=== PATIENT | female | born 1935 | race Caucasian/White ===

== ENCOUNTER 2022-02-05 14:02 | Inpatient (IN) | payer MEDICARE, MEDICAID ==
[~2022-02-05] VITALS: Ht 152.4 cm; Wt 49.0 kg
[2022-02-05] MEDS ORDERED: ACETAMINOPHEN 325MG TABLET PO STA (14:32)
[2022-02-05] MEDS ORDERED: SODIUM CHLORIDE 0.9% 1,000 ML IV ONE (14:45)
[2022-02-05] MEDS ORDERED: VANCOMYCIN 1G PREMIX 200 ML IV ONE (14:45)
[2022-02-05] MEDS ORDERED: METRONIDAZOLE 500 MG PREMIX 100 ML IV ONE (14:45)
[2022-02-05] MEDS ORDERED: CEFTRIAXONE 1 G PREMIX 50 ML IV ONE (14:45)
[2022-02-05] MEDS ORDERED: CEFTRIAXONE 1 G PREMIX 50 ML IV NR (14:45)
[2022-02-05] MEDS ORDERED: VANCOMYCIN 1G PREMIX 200 ML IV NR (14:45)
[2022-02-05 17:41] LABS: BASOPHILS % 0.3 % (0.0-2.0); EOSINOPHILS % 0.6 % (0.0-5.0); HEMATOCRIT. 37.4 % (36.0-48.0); HEMOGLOBIN. 12.4 g/dL (12.0-16.0); LYMPHOCYTES % 12.7 % (20.0-50.0); MEAN CORPUSCULAR HEMOGLOBIN 31.9 pg (28.0-32.0); MEAN CORPUSCULAR VOLUME 95.9 fL (81.0-99.0); MEAN PLATELET VOLUME 7.2 fl (7.4-10.4); MONOCYTES % 6.2 % (2.0-8.0); NEUTROPHILS % 80.2 % (40.0-76.0); PLATELET 271 x1000/uL (130-400); RED CELL DISTRIBUTION WIDTH 13.6 % (11.6-14.6)
[2022-02-05 17:48] LABS: INR 1.1; PROTHROMBIN TIME 11.7 sec (9.6-11.0)
[2022-02-05 17:53] LABS: CHLORIDE 98 mEq/L (98-107)
[2022-02-05] MEDS ORDERED: DOCUSATE SODIUM 100MG CAPSULE PO PRN (21:00)
[2022-02-05] MEDS ORDERED: DIPHENHYDRAMINE 50MG/ML VIAL IV PRN (21:00)
[2022-02-05] MEDS ORDERED: CLONIDINE 0.1MG TABLET PO PRN (21:00)
[2022-02-05] MEDS ORDERED: ONDANSETRON HCL 4MG/2ML INJ IV PRN (21:00)
[2022-02-05] MEDS ORDERED: ACETAMINOPHEN 325MG TABLET PO PRN (21:00)
[2022-02-05] MEDS ORDERED: ZOLPIDEM TARTRATE 5MG TABLET PO PRN (21:00)
[2022-02-05] MEDS ORDERED: PIPERACILLIN/TAZ 3.375G PREMIX 50 ML IV NR (21:47)
[2022-02-05 22:00] VITALS: BP 145/80
[2022-02-05] MEDS ORDERED: ENOXAPARIN 30MG/0.3ML SYR SUBCUT NR (22:08)
[2022-02-06] VITALS: BP 126/76
[2022-02-06] MEDS ORDERED: DEXTROSE 50% WATER 50ML SYRINGE IV PRN (01:30)
[2022-02-06 04:00] VITALS: BP 129/77
[2022-02-06] MEDS: BLOOD SUGAR DIAGNOSTIC STRIP TEST SCH ×4 (05:21→21:09)
[2022-02-06] MEDS: INSULIN LISPRO 100 UNITS/ML SUBCUT SCH ×4 (05:39→21:51)
[2022-02-06] MEDS ORDERED: PIPERACILLIN/TAZOBACTAM 3.375 G in DEXTROSE 5% WATER 50 ML IV SCH (06:00)
[2022-02-06 06:56] LABS: BASOPHILS % 0.2 % (0.0-2.0); EOSINOPHILS % 0.6 % (0.0-5.0); HEMATOCRIT. 37.8 % (36.0-48.0); HEMOGLOBIN. 12.7 g/dL (12.0-16.0); LYMPHOCYTES % 11.1 % (20.0-50.0); MEAN CORPUSCULAR HEMOGLOBIN 32.3 pg (28.0-32.0); MEAN PLATELET VOLUME 7.5 fl (7.4-10.4); MONOCYTES % 8.7 % (2.0-8.0); NEUTROPHILS % 79.4 % (40.0-76.0); PLATELET 227 x1000/uL (130-400); RED BLOOD CELL COUNT 3.94 mill/uL (4.2-5.4); RED CELL DISTRIBUTION WIDTH 13.8 % (11.6-14.6)
[2022-02-06 07:10] LABS: CHLORIDE 101 mEq/L (98-107)
[2022-02-06 08:00] VITALS: BP 143/71
[2022-02-06] MEDS ORDERED: VANCOMYCIN 500 MG in DEXT 5% WATER 100 ML IV SCH (10:00)
[2022-02-06] MEDS ORDERED: IOHEXOL-350 100 ML BOTTLE ONE (10:13)
[2022-02-06 12:00] VITALS: BP 145/80
[2022-02-06] MEDS: VANCOMYCIN 500MG PREMIX 100 ML IV SCH (12:12)
[2022-02-06] MEDS ORDERED: LIDOCAINE HCL/PF 1% 10 MG/ML 5ML VIAL ONE (12:45)
[2022-02-06] MEDS: PIPERACILLIN/TAZOBACTAM 3.375 G in DEXTROSE 5% WATER 50 ML IV SCH ×2 (13:54→21:48)
[2022-02-06 16:00] VITALS: BP 129/64
[2022-02-06 20:00] VITALS: BP 128/74
[2022-02-06] MEDS ORDERED: NALOXONE HCL 0.4MG/ML VIAL IV PRN (20:30)
[2022-02-06] MEDS ORDERED: MORPHINE SULFATE 2 MG/ML CPJ (NOT FOR IM USE) IV PRN (20:30)
[2022-02-06] MEDS: ENOXAPARIN 30MG/0.3ML SYR SUBCUT SCH (21:49)
[2022-02-07] VITALS: BP 104/66
[2022-02-07 04:00] VITALS: BP 142/77
[2022-02-07] MEDS: PIPERACILLIN/TAZOBACTAM 3.375 G in DEXTROSE 5% WATER 50 ML IV SCH ×3 (05:05→21:47)
[2022-02-07] MEDS: VANCOMYCIN 500MG PREMIX 100 ML IV SCH (05:06)
[2022-02-07] MEDS: BLOOD SUGAR DIAGNOSTIC STRIP TEST SCH ×4 (05:10→21:41)
[2022-02-07] MEDS: INSULIN LISPRO 100 UNITS/ML SUBCUT SCH ×4 (05:10→21:47)
[2022-02-07 08:00] VITALS: BP 138/65
[2022-02-07] MEDS ORDERED: DEXT 5%/0.45% NACL 1000ML 1,000 ML IV SCH (08:00)
[2022-02-07] MEDS ORDERED: REGADENOSON 0.4 MG/5 ML IV NR (09:02)
[2022-02-07 12:00] VITALS: BP 119/65
[2022-02-07] MEDS ORDERED: MIDAZOLAM HCL 2 MG/2 ML VIAL ONE (12:46)
[2022-02-07] MEDS ORDERED: LIDOCAINE HCL/PF 2% 20MG/ML 5 ML/VIAL ONE (12:46)
[2022-02-07] MEDS ORDERED: IODIXANOL 320MG/ML 100 ML BOTTLE IV ONE (12:46)
[2022-02-07] MEDS ORDERED: FENTANYL CITRATE/PF 50MCG/ML 2ML VIAL ONE (12:46)
[2022-02-07] MEDS ORDERED: HEPARIN 1000 UNITS/ML 10ML ONE (12:46)
[2022-02-07] MEDS: CLOPIDOGREL 75MG TABLET PO SCH (14:45)
[2022-02-07 16:00] VITALS: BP 137/71
[2022-02-07 20:00] VITALS: BP 127/69
[2022-02-07] MEDS: ENOXAPARIN 30MG/0.3ML SYR SUBCUT SCH (21:47)
[2022-02-07] MEDS: INSULIN GLARGINE 100 UNITS/ML SUBCUT SCH (21:48)
[2022-02-08] VITALS: BP 135/66
[2022-02-08] MEDS: VANCOMYCIN 500MG PREMIX 100 ML IV SCH ×2 (01:54→22:37)
[2022-02-08 04:00] VITALS: BP 128/66
[2022-02-08] MEDS: BLOOD SUGAR DIAGNOSTIC STRIP TEST SCH ×4 (05:42→21:15)
[2022-02-08] MEDS: PIPERACILLIN/TAZOBACTAM 3.375 G in DEXTROSE 5% WATER 50 ML IV SCH ×3 (05:49→21:27)
[2022-02-08] MEDS: INSULIN LISPRO 100 UNITS/ML SUBCUT SCH ×4 (05:50→21:31)
[2022-02-08 08:00] VITALS: BP 102/66
[2022-02-08 08:21] LABS: BASOPHILS % 0.3 % (0.0-2.0); EOSINOPHILS % 0.3 % (0.0-5.0); HEMOGLOBIN. 11.3 g/dL (12.0-16.0); LYMPHOCYTES % 10.2 % (20.0-50.0); MEAN CORPUSCULAR HEMOGLOBIN 32.6 pg (28.0-32.0); MEAN CORPUSCULAR VOLUME 95.4 fL (81.0-99.0); MEAN PLATELET VOLUME 7.7 fl (7.4-10.4); MONOCYTES % 7.9 % (2.0-8.0); NEUTROPHILS % 81.3 % (40.0-76.0); PLATELET 232 x1000/uL (130-400); RED BLOOD CELL COUNT 3.47 mill/uL (4.2-5.4); RED CELL DISTRIBUTION WIDTH 14.1 % (11.6-14.6)
[2022-02-08] MEDS: CLOPIDOGREL 75MG TABLET PO SCH (09:51)
[2022-02-08] MEDS: SODIUM CHLORIDE 0.45% 1,000 ML IV SCH (10:00)
[2022-02-08 12:00] VITALS: BP 112/68
[2022-02-08 16:00] VITALS: BP 131/75
[2022-02-08 20:00] VITALS: BP 117/60
[2022-02-08] MEDS ORDERED: DIGOXIN 500MCG/2ML AMP IV NR (20:45)
[2022-02-08] MEDS: ENOXAPARIN 30MG/0.3ML SYR SUBCUT SCH (21:15)
[2022-02-08] MEDS: INSULIN GLARGINE 100 UNITS/ML SUBCUT SCH (21:32)
[2022-02-08] MEDS: ATENOLOL 50 MG TABLET PO SCH (21:47)
[2022-02-09] VITALS: BP 138/71
[2022-02-09] MEDS: SODIUM CHLORIDE 0.45% 1,000 ML IV SCH (00:05)
[2022-02-09 04:00] VITALS: BP 134/67
[2022-02-09] MEDS: PIPERACILLIN/TAZOBACTAM 3.375 G in DEXTROSE 5% WATER 50 ML IV SCH ×3 (05:26→21:03)
[2022-02-09] MEDS: BLOOD SUGAR DIAGNOSTIC STRIP TEST SCH ×4 (05:52→21:03)
[2022-02-09] MEDS: INSULIN LISPRO 100 UNITS/ML SUBCUT SCH ×4 (06:42→21:19)
[2022-02-09 07:57] LABS: BASOPHILS % 0.6 % (0.0-2.0); EOSINOPHILS % 0.9 % (0.0-5.0); HEMATOCRIT. 32.4 % (36.0-48.0); HEMOGLOBIN. 10.9 g/dL (12.0-16.0); LYMPHOCYTES % 12.1 % (20.0-50.0); MEAN CORPUSCULAR HEMOGLOBIN 32.2 pg (28.0-32.0); MEAN CORPUSCULAR VOLUME 95.7 fL (81.0-99.0); MONOCYTES % 8.1 % (2.0-8.0); NEUTROPHILS % 78.3 % (40.0-76.0); RED BLOOD CELL COUNT 3.39 mill/uL (4.2-5.4); RED CELL DISTRIBUTION WIDTH 13.8 % (11.6-14.6)
[2022-02-09 08:00] VITALS: BP 131/67
[2022-02-09 08:19] LABS: PHOSPHORUS 2.7 mg/dL (2.5-4.9)
[2022-02-09] MEDS: CLOPIDOGREL 75MG TABLET PO SCH (09:23)
[2022-02-09] MEDS: ATENOLOL 50 MG TABLET PO SCH (09:23)
[2022-02-09] MEDS ORDERED: SODIUM CHLORIDE 0.9% 1,000 ML IV SCH (10:30)
[2022-02-09 12:00] VITALS: BP 136/74
[2022-02-09] MEDS: VANCOMYCIN 500MG PREMIX 100 ML IV SCH (13:45)
[2022-02-09 16:00] VITALS: BP 130/76
[2022-02-09 20:00] VITALS: BP 121/59
[2022-02-09] MEDS: ENOXAPARIN 30MG/0.3ML SYR SUBCUT SCH (21:03)
[2022-02-09] MEDS: INSULIN GLARGINE 100 UNITS/ML SUBCUT SCH (21:18)
[2022-02-10] VITALS: BP 139/70
[2022-02-10 04:00] VITALS: BP 118/65
[2022-02-10] MEDS: VANCOMYCIN 500MG PREMIX 100 ML IV SCH ×2 (06:07→23:59)
[2022-02-10] MEDS: PIPERACILLIN/TAZOBACTAM 3.375 G in DEXTROSE 5% WATER 50 ML IV SCH ×3 (06:07→21:50)
[2022-02-10] MEDS: BLOOD SUGAR DIAGNOSTIC STRIP TEST SCH ×4 (06:07→20:39)
[2022-02-10] MEDS: INSULIN LISPRO 100 UNITS/ML SUBCUT SCH ×4 (06:32→20:38)
[2022-02-10 07:18] LABS: BASOPHILS % 0.1 % (0.0-2.0); EOSINOPHILS % 0.8 % (0.0-5.0); HEMATOCRIT. 32.5 % (36.0-48.0); LYMPHOCYTES % 10.9 % (20.0-50.0); MEAN CORPUSCULAR HEMOGLOBIN 31.7 pg (28.0-32.0); MEAN CORPUSCULAR VOLUME 93.5 fL (81.0-99.0); MEAN PLATELET VOLUME 7.4 fl (7.4-10.4); MONOCYTES % 5.9 % (2.0-8.0); NEUTROPHILS % 82.3 % (40.0-76.0); PLATELET 242 x1000/uL (130-400); RED BLOOD CELL COUNT 3.47 mill/uL (4.2-5.4); RED CELL DISTRIBUTION WIDTH 13.4 % (11.6-14.6)
[2022-02-10] MEDS ORDERED: DEXT 5%/0.9% NACL 1,000 ML IV SCH (07:45)
[2022-02-10 07:58] LABS: PHOSPHORUS 2.6 mg/dL (2.5-4.9)
[2022-02-10 08:00] VITALS: BP 131/66
[2022-02-10] MEDS: CLOPIDOGREL 75MG TABLET PO SCH ×2 (09:00→13:49)
[2022-02-10] MEDS: ATENOLOL 50 MG TABLET PO SCH (09:52)
[2022-02-10] MEDS ORDERED: LIDOCAINE HCL/PF 2% 20MG/ML 5 ML/VIAL INJ NR (11:00)
[2022-02-10 12:00] VITALS: BP 131/87
[2022-02-10 13:52] LABS: BG BASE EXCESS -3.7 mmol/L (-2.0-2.0); BG CARBOXYHEMOGLOBIN 0.1 % (0.5-1.5); BG DEOXYHEMOGLOBIN 4.6 % (0.0-5.0); BG FRACTION INSPIRED OXYGEN 21; BG HCO3 ACT 17.9 mmol/L (22.0-26.0); BG METHEMOGLOBIN 0.4 % (0.0-1.5); BG OXYGEN SATURATION 95.4 % (92.0-98.5); BG OXYHEMOGLOBIN 94.9 % (94.0-97.0); BG PCO2 23.8 mmHg (35.0-45.0); BG PH 7.494 (7.350-7.450); BG PO2 74.9 mmHg (75.0-100.0); BG SAMPLE SITE RIGHT RADIAL; BG TOTAL HEMOGLOBIN 12.4 g/dL (12.0-18.0); BG VENT MODE ROOM AIR
[2022-02-10 16:00] VITALS: BP 133/70
[2022-02-10 20:00] VITALS: BP 134/76
[2022-02-10] MEDS: ENOXAPARIN 30MG/0.3ML SYR SUBCUT SCH (20:24)
[2022-02-10] MEDS: INSULIN GLARGINE 100 UNITS/ML SUBCUT SCH (21:51)
[2022-02-11] VITALS: BP 132/72
[2022-02-11 04:00] VITALS: BP 133/71
[2022-02-11] MEDS: PIPERACILLIN/TAZOBACTAM 3.375 G in DEXTROSE 5% WATER 50 ML IV SCH ×2 (05:08→13:15)
[2022-02-11] MEDS: BLOOD SUGAR DIAGNOSTIC STRIP TEST SCH ×4 (05:56→20:30)
[2022-02-11] MEDS: INSULIN LISPRO 100 UNITS/ML SUBCUT SCH ×4 (05:56→20:30)
[2022-02-11 08:00] VITALS: BP 134/63
[2022-02-11] MEDS: CLOPIDOGREL 75MG TABLET PO SCH (08:56)
[2022-02-11] MEDS: ATENOLOL 50 MG TABLET PO SCH (08:56)
[2022-02-11 10:12] LABS: BASOPHILS % 0.2 % (0.0-2.0); EOSINOPHILS % 0.6 % (0.0-5.0); HEMATOCRIT. 34.6 % (36.0-48.0); HEMOGLOBIN. 11.6 g/dL (12.0-16.0); LYMPHOCYTES % 8.1 % (20.0-50.0); MEAN CORPUSCULAR HEMOGLOBIN 31.8 pg (28.0-32.0); MEAN CORPUSCULAR VOLUME 94.4 fL (81.0-99.0); MEAN PLATELET VOLUME 7.2 fl (7.4-10.4); MONOCYTES % 5.2 % (2.0-8.0); NEUTROPHILS % 85.9 % (40.0-76.0); PLATELET 270 x1000/uL (130-400); RED BLOOD CELL COUNT 3.66 mill/uL (4.2-5.4); RED CELL DISTRIBUTION WIDTH 13.6 % (11.6-14.6)
[2022-02-11 12:00] VITALS: BP 123/61
[2022-02-11 16:00] VITALS: BP 119/81
[2022-02-11 20:00] VITALS: BP 113/56
[2022-02-11] MEDS: ENOXAPARIN 30MG/0.3ML SYR SUBCUT SCH (20:31)
[2022-02-11] MEDS: INSULIN GLARGINE 100 UNITS/ML SUBCUT SCH (21:58)
[2022-02-12] VITALS: BP 122/65
[2022-02-12 05:00] VITALS: BP 93/63
[2022-02-12] MEDS: INSULIN LISPRO 100 UNITS/ML SUBCUT SCH ×4 (06:22→21:15)
[2022-02-12] MEDS: BLOOD SUGAR DIAGNOSTIC STRIP TEST SCH ×4 (06:22→21:00)
[2022-02-12 07:41] LABS: BASOPHILS % 0.3 % (0.0-2.0); HEMATOCRIT. 30.6 % (36.0-48.0); HEMOGLOBIN. 10.4 g/dL (12.0-16.0); LYMPHOCYTES % 9.9 % (20.0-50.0); MEAN CORPUSCULAR HEMOGLOBIN 31.9 pg (28.0-32.0); MEAN CORPUSCULAR VOLUME 94.2 fL (81.0-99.0); MEAN PLATELET VOLUME 7.2 fl (7.4-10.4); MONOCYTES % 5.4 % (2.0-8.0); NEUTROPHILS % 83.4 % (40.0-76.0); PLATELET 275 x1000/uL (130-400); RED BLOOD CELL COUNT 3.25 mill/uL (4.2-5.4); RED CELL DISTRIBUTION WIDTH 13.4 % (11.6-14.6)
[2022-02-12 08:00] VITALS: BP 137/71
[2022-02-12] MEDS: ATENOLOL 50 MG TABLET PO SCH (08:23)
[2022-02-12] MEDS: CLOPIDOGREL 75MG TABLET PO SCH (08:23)
[2022-02-12 12:00] VITALS: BP 140/74
[2022-02-12 16:00] VITALS: BP 118/54
[2022-02-12] MEDS: PIPERACILLIN/TAZOBACTAM 3.375 G in DEXTROSE 5% WATER 50 ML IV SCH ×2 (18:24→22:16)
[2022-02-12] MEDS: ENOXAPARIN 30MG/0.3ML SYR SUBCUT SCH (19:52)
[2022-02-12 20:00] VITALS: BP 120/50
[2022-02-12] MEDS: INSULIN GLARGINE 100 UNITS/ML SUBCUT SCH (21:16)
[2022-02-12] MEDS ORDERED: VANCOMYCIN 750MG PREMIX 150 ML IV SCH (23:00)
[2022-02-13] VITALS: BP 101/50
[2022-02-13 04:00] VITALS: BP 105/50
[2022-02-13] MEDS: PIPERACILLIN/TAZOBACTAM 3.375 G in DEXTROSE 5% WATER 50 ML IV SCH ×2 (05:03→13:41)
[2022-02-13] MEDS: BLOOD SUGAR DIAGNOSTIC STRIP TEST SCH ×4 (07:20→21:31)
[2022-02-13] MEDS: INSULIN LISPRO 100 UNITS/ML SUBCUT SCH ×4 (07:50→21:32)
[2022-02-13 08:00] VITALS: BP 111/66
[2022-02-13] MEDS: ATENOLOL 50 MG TABLET PO SCH (09:00)
[2022-02-13] MEDS: CLOPIDOGREL 75MG TABLET PO SCH (09:41)
[2022-02-13 12:00] VITALS: BP 149/77
[2022-02-13] MEDS ORDERED: CEFTRIAXONE 2 G PREMIX 50 ML IV SCH (15:00)
[2022-02-13 16:00] VITALS: BP 126/58
[2022-02-13] MEDS: CEFTRIAXONE 2 G in DEXTROSE 5% WATER 50 ML IV SCH (18:24)
[2022-02-13 20:00] VITALS: BP 102/52
[2022-02-13] MEDS: METRONIDAZOLE 500MG TABLET PO SCH (21:30)
[2022-02-13] MEDS: ENOXAPARIN 30MG/0.3ML SYR SUBCUT SCH (21:30)
[2022-02-13] MEDS: INSULIN GLARGINE 100 UNITS/ML SUBCUT SCH (21:32)
[2022-02-14] VITALS: BP 118/61
[2022-02-14 04:00] VITALS: BP 133/53
[2022-02-14] MEDS: BLOOD SUGAR DIAGNOSTIC STRIP TEST SCH ×4 (06:46→21:00)
[2022-02-14] MEDS: INSULIN LISPRO 100 UNITS/ML SUBCUT SCH ×4 (06:47→21:00)
[2022-02-14 07:05] LABS: BASOPHILS % 0.2 % (0.0-2.0); EOSINOPHILS % 0.3 % (0.0-5.0); HEMATOCRIT. 32.1 % (36.0-48.0); HEMOGLOBIN. 11.1 g/dL (12.0-16.0); LYMPHOCYTES % 7.7 % (20.0-50.0); MEAN CORPUSCULAR HEMOGLOBIN 32.3 pg (28.0-32.0); MEAN CORPUSCULAR VOLUME 93.4 fL (81.0-99.0); MEAN PLATELET VOLUME 6.9 fl (7.4-10.4); MONOCYTES % 4.4 % (2.0-8.0); NEUTROPHILS % 87.4 % (40.0-76.0); PLATELET 348 x1000/uL (130-400); RED BLOOD CELL COUNT 3.44 mill/uL (4.2-5.4); RED CELL DISTRIBUTION WIDTH 13.5 % (11.6-14.6)
[2022-02-14 08:00] VITALS: BP 121/82
[2022-02-14] MEDS: ATENOLOL 50 MG TABLET PO SCH ×2 (08:13→08:54)
[2022-02-14] MEDS: CLOPIDOGREL 75MG TABLET PO SCH ×2 (08:13→08:54)
[2022-02-14] MEDS: METRONIDAZOLE 500MG TABLET PO SCH ×3 (08:13→21:56)
[2022-02-14 12:00] VITALS: BP 118/53
[2022-02-14 16:00] VITALS: BP 121/71
[2022-02-14] MEDS: CEFTRIAXONE 2 G in DEXTROSE 5% WATER 50 ML IV SCH (16:05)
[2022-02-14 20:00] VITALS: BP 129/58
[2022-02-14] MEDS: ENOXAPARIN 30MG/0.3ML SYR SUBCUT SCH (21:56)
[2022-02-14] MEDS: INSULIN GLARGINE 100 UNITS/ML SUBCUT SCH (22:00)
[2022-02-15] VITALS: BP 134/62
[2022-02-15 04:00] VITALS: BP 137/64
[2022-02-15] MEDS: BLOOD SUGAR DIAGNOSTIC STRIP TEST SCH (06:59)
[2022-02-15] MEDS: INSULIN LISPRO 100 UNITS/ML SUBCUT SCH (07:50)
[2022-02-15 08:00] VITALS: BP 124/80
[2022-02-15] MEDS: CLOPIDOGREL 75MG TABLET PO SCH (09:18)
[2022-02-15] MEDS: ATENOLOL 50 MG TABLET PO SCH (09:18)
[2022-02-15] MEDS: METRONIDAZOLE 500MG TABLET PO SCH (09:20)
== END 2022-02-15 11:00 | disposition home health service (06) | DRG 270 ==
LOC: ER 14:02 → 8WST 19:27 → EDBEDREQTM 19:39 → EDBEDREQ 19:39 → EDBEDREQSVC 20:21 → EDBEDREQTM 20:21 → ENRESERV 20:23 → ER 21:13 → 6EST 02-12 11:24
PROVIDERS: ADMIT Internal Medicine Nephrology; ATTEND Internal Medicine Nephrology
PROC: 02HV33Z Insertion of Infusion Device into Superior Vena Cava, Percutaneous Approach (ICD-10-PCS; 2022-02-06)
PROC: B548ZZA Ultrasonography of Superior Vena Cava, Guidance (ICD-10-PCS; 2022-02-06)
PROC: 047M3ZZ Dilation of Right Popliteal Artery, Percutaneous Approach (ICD-10-PCS; principal; 2022-02-07)
PROC: 04CM3ZZ Extirpation of Matter from Right Popliteal Artery, Percutaneous Approach (ICD-10-PCS; 2022-02-07)
PROC: 047K3ZZ Dilation of Right Femoral Artery, Percutaneous Approach (ICD-10-PCS; 2022-02-07)
PROC: 047 Lower Arteries, Dilation (ICD-10-PCS; 2022-02-07)
PROC: 0JBQ0ZZ Excision of Right Foot Subcutaneous Tissue and Fascia, Open Approach (ICD-10-PCS; 2022-02-07)
PROC: B41F1ZZ Fluoroscopy of Right Lower Extremity Arteries using Low Osmolar Contrast (ICD-10-PCS; 2022-02-07)
DX: I70.261 Atherosclerosis of native arteries of extremities with gangrene, right leg (principal); G93.41 Metabolic encephalopathy; L02.611 Cutaneous abscess of right foot; L97.419 Non-pressure chronic ulcer of right heel and midfoot with unspecified severity; L03.115 Cellulitis of right lower limb; M86.8X7 Other osteomyelitis, ankle and foot; I25.10 Atherosclerotic heart disease of native coronary artery without angina pectoris; I11.0 Hypertensive heart disease with heart failure; I70.202 Unspecified atherosclerosis of native arteries of extremities, left leg; B95.61 Methicillin susceptible Staphylococcus aureus infection as the cause of diseases classified elsewhere; B96.4 Proteus (mirabilis) (morganii) as the cause of diseases classified elsewhere; B96.20 Unspecified Escherichia coli [E. coli] as the cause of diseases classified elsewhere; E11.69 Type 2 diabetes mellitus with other specified complication; I50.9 Heart failure, unspecified; E11.649 Type 2 diabetes mellitus with hypoglycemia without coma; E78.5 Hyperlipidemia, unspecified; Z20.822 Contact with and (suspected) exposure to COVID-19; E11.621 Type 2 diabetes mellitus with foot ulcer; F03.90 Unspecified dementia, unspecified severity, without behavioral disturbance, psychotic disturbance, mood disturbance, and anxiety; I48.91 Unspecified atrial fibrillation; S90.31XA Contusion of right foot, initial encounter; X58.XXXA Exposure to other specified factors, initial encounter; Y93.89 Activity, other specified; Y92.89 Other specified places as the place of occurrence of the external cause; Y99.8 Other external cause status; Z74.01 Bed confinement status; Z95.0 Presence of cardiac pacemaker
CPT/HCPCS: 36415; 36573; 36600; 37227; 37228; 71045; 73650; 75635; 75710; 78452; 80048; 80053; 80061; 80202; 82375; 82805; 82962; 83036; 83605; 83735; 84100; 84145; 85025; 85347; 85651; 87070; 87077; 87186; 87426; 93005; 93017; 93306; 93970; 99285; A9500; C1725; C1760; C1769; C1876; C1885; C1887; C1893; C1894; J0696; J1160; J1644; J1650; J1815; J2250; J2543; J2785; J3010; J3370; J3490; J7030; J7042; J7060; L1830; Q9967

== ENCOUNTER 2022-03-01 09:33 | Inpatient (IN) | payer MEDICARE, MEDICAID ==
[~2022-03-01] VITALS: Ht 160 cm; Wt 46.3 kg
[2022-03-01] MEDS ORDERED: ACETAMINOPHEN 650MG SUPP PR STA (09:54)
[2022-03-01] MEDS ORDERED: SODIUM CHLORIDE 0.9% 1000ML BAG (SEPSIS BOLUS) IV ONE (10:00)
[2022-03-01] MEDS ORDERED: PIPERACILLIN/TAZ 3.375G PREMIX 50 ML IV ONE (10:00)
[2022-03-01] MEDS ORDERED: VANCOMYCIN 1G PREMIX 200 ML IV ONE (10:00)
[2022-03-01 10:16] LABS: BG BASE EXCESS 1.8 mmol/L (-2.0-2.0); BG CARBOXYHEMOGLOBIN 0.3 % (0.5-1.5); BG DEOXYHEMOGLOBIN 3.9 % (0.0-5.0); BG HCO3 ACT 25.6 mmol/L (22.0-26.0); BG METHEMOGLOBIN 0.7 % (0.0-1.5); BG OXYGEN SATURATION 96.1 % (92.0-98.5); BG OXYHEMOGLOBIN 95.1 % (94.0-97.0); BG PCO2 37.4 mmHg (35.0-45.0); BG PH 7.454 (7.350-7.450); BG PO2 88.1 mmHg (75.0-100.0); BG SAMPLE SITE RIGHT BRACHIAL; BG TOTAL HEMOGLOBIN 11.7 g/dL (12.0-18.0); BG VENT MODE NASAL CANNULA
[2022-03-01] MEDS ORDERED: VANCOMYCIN 1GM PMX (XELLIA) 200 ML IV NR (10:30)
[2022-03-01 10:31] LABS: BASOPHILS % 0.6 % (0.0-2.0); EOSINOPHILS % 0.1 % (0.0-5.0); HEMATOCRIT. 32.7 % (36.0-48.0); HEMOGLOBIN. 10.8 g/dL (12.0-16.0); LYMPHOCYTES % 11.8 % (20.0-50.0); MEAN CORPUSCULAR HEMOGLOBIN 31.7 pg (28.0-32.0); MEAN CORPUSCULAR VOLUME 96.1 fL (81.0-99.0); MEAN PLATELET VOLUME 7.5 fl (7.4-10.4); MONOCYTES % 4.4 % (2.0-8.0); NEUTROPHILS % 83.1 % (40.0-76.0); PLATELET 330 x1000/uL (130-400); RED CELL DISTRIBUTION WIDTH 13.9 % (11.6-14.6)
[2022-03-01 10:35] LABS: CLARITY URINE TURBID (CLEAR); COLOR URINE YELLOW (YELLOW); KETONES URINE TRACE (NEGATIVE); LEUKOCYTE ESTERASE URINE 3+ (NEGATIVE); NITRITE URINE NEGATIVE (NEGATIVE); OCCULT BLOOD URINE 2+ (NEGATIVE); PROTEIN URINE 2+ (NEGATIVE); SPECIFIC GRAVITY URINE 1.018 (1.005-1.030)
[2022-03-01 10:40] LABS: INR 1.2; PROTHROMBIN TIME 12.7 sec (9.6-11.0)
[2022-03-01 10:46] LABS: CHLORIDE 107 mEq/L (98-107)
[2022-03-01 16:00] VITALS: BP 142/80
[2022-03-01] MEDS ORDERED: CEFTRIAXONE 1 G PREMIX 50 ML IV SCH (16:30)
[2022-03-01] MEDS ORDERED: MAGNESIUM/ALUMINUM HYDROXIDE/SIMETHICONE 30ML UDC PO PRN (16:30)
[2022-03-01] MEDS ORDERED: CLONIDINE 0.1MG TABLET PO PRN (16:30)
[2022-03-01] MEDS ORDERED: NA PHOS,M-B/NA PHOS,DI-BA ENEMA 118ML PR PRN (16:30)
[2022-03-01] MEDS ORDERED: ONDANSETRON HCL 4MG/2ML INJ IV PRN (16:30)
[2022-03-01 16:36] VITALS: BP 142/80
[2022-03-01] MEDS ORDERED: CEFTRIAXONE 1,000 MG in DEXTROSE 5% WATER 50 ML IV SCH (18:00)
[2022-03-01] MEDS: ENOXAPARIN 40MG/0.4ML SYR SUBCUT SCH ×2 (18:06→22:36)
[2022-03-01 20:00] VITALS: BP 144/77
[2022-03-01 21:29] LABS: CHLORIDE 109 mEq/L (98-107)
[2022-03-01] MEDS ORDERED: DEXTROSE 50% WATER 50ML SYRINGE IV PRN (22:15)
[2022-03-01] MEDS: BLOOD SUGAR DIAGNOSTIC STRIP TEST SCH (22:44)
[2022-03-01] MEDS: INSULIN LISPRO 100 UNITS/ML SUBCUT SCH (22:47)
[2022-03-02] VITALS (7 sets, daily range): BP systolic 105–143; BP diastolic 62–75
[2022-03-02] MEDS: INSULIN LISPRO 100 UNITS/ML SUBCUT SCH ×4 (07:19→20:55)
[2022-03-02] MEDS: BLOOD SUGAR DIAGNOSTIC STRIP TEST SCH ×4 (07:19→20:14)
[2022-03-02] MEDS: METRONIDAZOLE 500MG TABLET PO SCH ×3 (09:25→20:53)
[2022-03-02] MEDS: FLUCONAZOLE 100MG TABLET PO SCH (09:26)
[2022-03-02] MEDS: SODIUM CHLORIDE 0.45% 1,000 ML IV SCH (09:32)
[2022-03-02] MEDS: INSULIN GLARGINE 100 UNITS/ML SUBCUT SCH (11:17)
[2022-03-02] MEDS ORDERED: IOHEXOL-350 100 ML BOTTLE ONE (12:44)
[2022-03-02] MEDS: ENOXAPARIN 30MG/0.3ML SYR SUBCUT SCH (14:54)
[2022-03-02] MEDS: CEFTRIAXONE 2 G in DEXTROSE 5% WATER 50 ML IV SCH (17:57)
[2022-03-03 04:00] VITALS: BP 129/75
[2022-03-03] MEDS: BLOOD SUGAR DIAGNOSTIC STRIP TEST SCH ×4 (05:38→20:55)
[2022-03-03] MEDS: INSULIN LISPRO 100 UNITS/ML SUBCUT SCH ×4 (05:42→20:55)
[2022-03-03] MEDS: SODIUM CHLORIDE 0.45% 1,000 ML IV SCH ×2 (05:46→11:51)
[2022-03-03] MEDS: METRONIDAZOLE 500MG TABLET PO SCH ×3 (05:51→21:49)
[2022-03-03 07:38] LABS: BASOPHILS % 0.2 % (0.0-2.0); EOSINOPHILS % 0.6 % (0.0-5.0); HEMATOCRIT. 31.6 % (36.0-48.0); HEMOGLOBIN. 10.5 g/dL (12.0-16.0); LYMPHOCYTES % 16.7 % (20.0-50.0); MEAN CORPUSCULAR HEMOGLOBIN 31.7 pg (28.0-32.0); MEAN CORPUSCULAR VOLUME 95.4 fL (81.0-99.0); MEAN PLATELET VOLUME 7.3 fl (7.4-10.4); MONOCYTES % 6.2 % (2.0-8.0); NEUTROPHILS % 76.3 % (40.0-76.0); PLATELET 323 x1000/uL (130-400); RED BLOOD CELL COUNT 3.31 mill/uL (4.2-5.4); RED CELL DISTRIBUTION WIDTH 14.3 % (11.6-14.6)
[2022-03-03 07:52] LABS: CHLORIDE 109 mEq/L (98-107)
[2022-03-03 08:00] VITALS: BP 136/82
[2022-03-03] MEDS: FLUCONAZOLE 100MG TABLET PO SCH (08:57)
[2022-03-03] MEDS ORDERED: FLUCONAZOLE 100MG TABLET PO SCH (09:45)
[2022-03-03] MEDS: INSULIN GLARGINE 100 UNITS/ML SUBCUT SCH (10:00)
[2022-03-03 11:49] VITALS: BP 131/79
[2022-03-03] MEDS: ENOXAPARIN 30MG/0.3ML SYR SUBCUT SCH (14:16)
[2022-03-03 16:00] VITALS: BP 139/79
[2022-03-03] MEDS: CEFTRIAXONE 2 G in DEXTROSE 5% WATER 50 ML IV SCH (17:26)
[2022-03-03 20:00] VITALS: BP 138/83
[2022-03-04] VITALS (16 sets, daily range): BP systolic 130–187; BP diastolic 67–104
[2022-03-04] MEDS: SODIUM CHLORIDE 0.45% 1,000 ML IV SCH ×2 (01:18→14:20)
[2022-03-04] MEDS: METRONIDAZOLE 500MG TABLET PO SCH ×3 (06:03→23:28)
[2022-03-04] MEDS: BLOOD SUGAR DIAGNOSTIC STRIP TEST SCH ×4 (06:13→21:56)
[2022-03-04] MEDS: INSULIN LISPRO 100 UNITS/ML SUBCUT SCH ×4 (07:30→22:03)
[2022-03-04] MEDS: FLUCONAZOLE 100MG TABLET PO SCH (08:26)
[2022-03-04] MEDS: INSULIN GLARGINE 100 UNITS/ML SUBCUT SCH (10:00)
[2022-03-04] MEDS ORDERED: POLYMYXIN B SULFATE 500000 UNITS/VIAL ONE (10:21)
[2022-03-04] MEDS ORDERED: LIDOCAINE HCL 1% 50ML VIAL (10MG/ML) ONE (10:22)
[2022-03-04] MEDS ORDERED: BUPIVACAINE HCL 0.5% (5MG/ML) 50ML ONE (10:22)
[2022-03-04] MEDS ORDERED: HEPARIN SODIUM 1,000 UNIT/1ML VIAL IV ONE (10:22)
[2022-03-04] MEDS ORDERED: BACITRACIN 15GM TUBE TOP ONE (10:22)
[2022-03-04] MEDS ORDERED: THROMBIN (BOVINE) 5000 UNITS/VIAL TOP ONE (10:22)
[2022-03-04] MEDS ORDERED: FENTANYL CITRATE/PF 50MCG/ML 2ML VIAL ONE (10:57)
[2022-03-04] MEDS ORDERED: PROPOFOL 200MG/20ML VIAL IV ONE (10:57)
[2022-03-04] MEDS ORDERED: ETOMIDATE 2MG/ML 10ML VIAL IV ONE (10:59)
[2022-03-04] MEDS: LOSARTAN POTASSIUM 25 MG TABLET PO SCH (11:39)
[2022-03-04] MEDS ORDERED: MORPHINE SULFATE 4 MG/ML CPJ (NOT FOR IM USE) IV PRN (13:45)
[2022-03-04] MEDS: ENOXAPARIN 30MG/0.3ML SYR SUBCUT SCH (14:00)
[2022-03-04] MEDS ORDERED: MORPHINE SULFATE 2 MG/ML CPJ (NOT FOR IM USE) IV PRN (15:00)
[2022-03-04] MEDS ORDERED: ONDANSETRON HCL 4MG/2ML INJ IV PRN (15:00)
[2022-03-04] MEDS ORDERED: FENTANYL CITRATE/PF 50MCG/ML 2ML VIAL IV PRN (15:00)
[2022-03-04] MEDS ORDERED: NALOXONE HCL 0.4MG/ML VIAL IV PRN (15:15)
[2022-03-04] MEDS ORDERED: METOPROLOL TARTRATE 5MG/5ML VIAL IV NR (16:30)
[2022-03-04] MEDS ORDERED: METOPROLOL TARTRATE 5MG/5ML VIAL IV PRN (16:45)
[2022-03-04] MEDS ORDERED: DIGOXIN 500MCG/2ML AMP ONE (16:46)
[2022-03-04] MEDS ORDERED: DIGOXIN 500MCG/2ML AMP IV PRN (17:00)
[2022-03-04] MEDS: CARVEDILOL 3.125 MG TABLET PO SCH (20:49)
[2022-03-04 21:12] LABS: BASOPHILS % 0.2 % (0.0-2.0); EOSINOPHILS % 0.4 % (0.0-5.0); HEMATOCRIT. 33.2 % (36.0-48.0); HEMOGLOBIN. 10.8 g/dL (12.0-16.0); LYMPHOCYTES % 9.3 % (20.0-50.0); MEAN CORPUSCULAR HEMOGLOBIN 31.5 pg (28.0-32.0); MEAN CORPUSCULAR VOLUME 96.6 fL (81.0-99.0); MEAN PLATELET VOLUME 7.5 fl (7.4-10.4); MONOCYTES % 4.8 % (2.0-8.0); NEUTROPHILS % 85.3 % (40.0-76.0); PLATELET 327 x1000/uL (130-400); RED BLOOD CELL COUNT 3.44 mill/uL (4.2-5.4); RED CELL DISTRIBUTION WIDTH 14.2 % (11.6-14.6)
[2022-03-04 21:44] LABS: CHLORIDE 108 mEq/L (98-107)
[2022-03-04] MEDS: CEFTRIAXONE 2 G in DEXTROSE 5% WATER 50 ML IV SCH (23:17)
[2022-03-05] VITALS (10 sets, daily range): BP systolic 113–163; BP diastolic 57–81
[2022-03-05] MEDS: SODIUM CHLORIDE 0.45% 1,000 ML IV SCH ×2 (04:34→18:46)
[2022-03-05] MEDS: METRONIDAZOLE 500MG TABLET PO SCH ×3 (06:00→21:03)
[2022-03-05 06:31] LABS: BASOPHILS % 0.1 % (0.0-2.0); EOSINOPHILS % 0.9 % (0.0-5.0); HEMATOCRIT. 31.1 % (36.0-48.0); HEMOGLOBIN. 10.7 g/dL (12.0-16.0); MEAN CORPUSCULAR HEMOGLOBIN 32.4 pg (28.0-32.0); MEAN CORPUSCULAR VOLUME 94.5 fL (81.0-99.0); MEAN PLATELET VOLUME 7.6 fl (7.4-10.4); MONOCYTES % 5.3 % (2.0-8.0); NEUTROPHILS % 83.7 % (40.0-76.0); PLATELET 301 x1000/uL (130-400); RED BLOOD CELL COUNT 3.29 mill/uL (4.2-5.4); RED CELL DISTRIBUTION WIDTH 13.5 % (11.6-14.6)
[2022-03-05 06:54] LABS: CHLORIDE 109 mEq/L (98-107)
[2022-03-05] MEDS: BLOOD SUGAR DIAGNOSTIC STRIP TEST SCH ×4 (07:30→20:39)
[2022-03-05] MEDS: INSULIN LISPRO 100 UNITS/ML SUBCUT SCH ×4 (08:00→20:59)
[2022-03-05] MEDS: INSULIN GLARGINE 100 UNITS/ML SUBCUT SCH (09:41)
[2022-03-05] MEDS ORDERED: POTASSIUM CHLORIDE 20MEQ TABLET SR PO NR (09:45)
[2022-03-05] MEDS: LOSARTAN POTASSIUM 25 MG TABLET PO SCH (10:01)
[2022-03-05] MEDS: CARVEDILOL 3.125 MG TABLET PO SCH ×2 (10:01→21:04)
[2022-03-05] MEDS: FLUCONAZOLE 40 MG/ML ORAL SYRINGE PO SCH (12:52)
[2022-03-05] MEDS: ENOXAPARIN 30MG/0.3ML SYR SUBCUT SCH (14:00)
[2022-03-05] MEDS: CEFTRIAXONE 2 G in DEXTROSE 5% WATER 50 ML IV SCH (18:46)
[2022-03-06] VITALS (13 sets, daily range): BP systolic 126–161; BP diastolic 63–83
[2022-03-06] MEDS: SODIUM CHLORIDE 0.45% 1,000 ML IV SCH ×2 (06:00→17:14)
[2022-03-06] MEDS: METRONIDAZOLE 500MG TABLET PO SCH ×3 (06:45→21:58)
[2022-03-06] MEDS: BLOOD SUGAR DIAGNOSTIC STRIP TEST SCH ×4 (06:52→21:57)
[2022-03-06] MEDS: INSULIN LISPRO 100 UNITS/ML SUBCUT SCH ×4 (08:00→21:00)
[2022-03-06] MEDS: FLUCONAZOLE 40 MG/ML ORAL SYRINGE PO SCH (09:58)
[2022-03-06] MEDS: LOSARTAN POTASSIUM 25 MG TABLET PO SCH (09:58)
[2022-03-06] MEDS: INSULIN GLARGINE 100 UNITS/ML SUBCUT SCH (10:13)
[2022-03-06] MEDS: CEFTRIAXONE 2 G in DEXTROSE 5% WATER 50 ML IV SCH (17:13)
[2022-03-06] MEDS: CARVEDILOL 6.25 MG TABLET PO SCH (22:13)
[2022-03-07] VITALS (8 sets, daily range): BP systolic 123–146; BP diastolic 62–80
[2022-03-07] MEDS: METRONIDAZOLE 500MG TABLET PO SCH ×3 (05:35→21:40)
[2022-03-07] MEDS: BLOOD SUGAR DIAGNOSTIC STRIP TEST SCH ×4 (07:00→21:00)
[2022-03-07] MEDS ORDERED: LIDOCAINE HCL/EPINEPHRINE 1%-EPI 1:100,000 20 ML VIAL ONE (07:11)
[2022-03-07] MEDS ORDERED: BACITRACIN 15GM TUBE TOP ONE (07:11)
[2022-03-07] MEDS ORDERED: VANCOMYCIN HCL 1 GM/VIAL ONE (07:11)
[2022-03-07] MEDS ORDERED: POLYMYXIN B SULFATE 500000 UNITS/VIAL ONE (07:11)
[2022-03-07] MEDS ORDERED: CEFAZOLIN SODIUM 1000MG/VIAL ONE ×2 (07:26→07:27)
[2022-03-07] MEDS ORDERED: PHENYLEPHRINE HCL 10 MG/ML 1ML (IV VIAL) IV ONE (07:27)
[2022-03-07] MEDS ORDERED: LIDOCAINE HCL 1% 20ML VIAL (Pyxis) INJ ONE (07:27)
[2022-03-07] MEDS ORDERED: MIDAZOLAM HCL 2 MG/2 ML VIAL ONE (07:28)
[2022-03-07] MEDS: INSULIN LISPRO 100 UNITS/ML SUBCUT SCH ×4 (08:00→21:00)
[2022-03-07] MEDS ORDERED: BUPIVACAINE HCL/PF 0.25% (2.5MG/ML) 10ML ONE ×2 (08:25→08:28)
[2022-03-07] MEDS: LOSARTAN POTASSIUM 25 MG TABLET PO SCH (09:00)
[2022-03-07] MEDS: CARVEDILOL 6.25 MG TABLET PO SCH ×2 (09:00→21:00)
[2022-03-07] MEDS: SODIUM CHLORIDE 0.45% 1,000 ML IV SCH ×2 (09:00→18:02)
[2022-03-07] MEDS ORDERED: GLYCOPYRROLATE 0.2 MG/ML 2ML VIAL IV PRN (09:00)
[2022-03-07] MEDS ORDERED: ONDANSETRON HCL 4MG/2ML INJ IV PRN (09:00)
[2022-03-07] MEDS ORDERED: DEXAMETHASONE 4MG/ML 1ML VIAL ONE (09:03)
[2022-03-07] MEDS ORDERED: SODIUM CHLORIDE 0.9% 1,000 ML IV SCH (09:30)
[2022-03-07] MEDS: INSULIN GLARGINE 100 UNITS/ML SUBCUT SCH (10:00)
[2022-03-07 10:41] LABS: HEMATOCRIT. 28.6 % (36.0-48.0); HEMOGLOBIN. 9.6 g/dL (12.0-16.0); MEAN CORPUSCULAR VOLUME 95.5 fL (81.0-99.0); MEAN PLATELET VOLUME 7.2 fl (7.4-10.4); PLATELET 222 x1000/uL (130-400)
[2022-03-07 10:48] LABS: CHLORIDE 111 mEq/L (98-107)
[2022-03-07] MEDS: FLUCONAZOLE 40 MG/ML ORAL SYRINGE PO SCH (12:21)
[2022-03-07] MEDS: CEFAZOLIN 2,000 MG in DEXT 5% WATER 100 ML IV SCH ×2 (15:28→21:40)
[2022-03-08] VITALS (13 sets, daily range): BP systolic 109–161; BP diastolic 47–79
[2022-03-08 05:19] LABS: PLATELET ESTIMATE NORMAL
[2022-03-08] MEDS: CEFAZOLIN 2,000 MG in DEXT 5% WATER 100 ML IV SCH ×3 (06:00→21:38)
[2022-03-08] MEDS: BLOOD SUGAR DIAGNOSTIC STRIP TEST SCH ×4 (06:10→21:41)
[2022-03-08] MEDS: LOSARTAN POTASSIUM 25 MG TABLET PO SCH (08:38)
[2022-03-08] MEDS: CARVEDILOL 6.25 MG TABLET PO SCH ×2 (08:38→21:42)
[2022-03-08] MEDS: FLUCONAZOLE 40 MG/ML ORAL SYRINGE PO SCH (08:38)
[2022-03-08] MEDS: INSULIN LISPRO 100 UNITS/ML SUBCUT SCH ×4 (08:39→21:54)
[2022-03-08] MEDS: INSULIN GLARGINE 100 UNITS/ML SUBCUT SCH (08:40)
[2022-03-08 09:15] LABS: CHLORIDE 104 mEq/L (98-107)
[2022-03-08 09:23] LABS: EOSINOPHILS % 0.1 % (0.0-5.0); HEMATOCRIT. 30.2 % (36.0-48.0); HEMOGLOBIN. 10.2 g/dL (12.0-16.0); LYMPHOCYTES % 7.1 % (20.0-50.0); MEAN CORPUSCULAR HEMOGLOBIN 32.1 pg (28.0-32.0); MEAN CORPUSCULAR VOLUME 94.9 fL (81.0-99.0); MEAN PLATELET VOLUME 7.5 fl (7.4-10.4); MONOCYTES % 5.1 % (2.0-8.0); NEUTROPHILS % 87.7 % (40.0-76.0); PLATELET 246 x1000/uL (130-400); RED BLOOD CELL COUNT 3.18 mill/uL (4.2-5.4); RED CELL DISTRIBUTION WIDTH 14.3 % (11.6-14.6)
[2022-03-08] MEDS ORDERED: MORPHINE SULFATE 4 MG/ML CPJ (NOT FOR IM USE) IV PRN (10:45)
[2022-03-08] MEDS ORDERED: MORPHINE SULFATE 2 MG/ML CPJ (NOT FOR IM USE) IV PRN (10:47)
[2022-03-08] MEDS: SODIUM CHLORIDE 0.45% 1,000 ML IV SCH (11:41)
[2022-03-08] MEDS: HYDROCODONE/ACETAMINOPHEN 5/325MG TABLET PO PRN ×2 (11:42→21:53)
[2022-03-09] VITALS (11 sets, daily range): BP systolic 130–159; BP diastolic 62–86
[2022-03-09] MEDS: SODIUM CHLORIDE 0.45% 1,000 ML IV SCH (04:06)
[2022-03-09 06:23] LABS: BASOPHILS % 0.3 % (0.0-2.0); EOSINOPHILS % 1.3 % (0.0-5.0); HEMATOCRIT. 26.5 % (36.0-48.0); HEMOGLOBIN. 9.1 g/dL (12.0-16.0); LYMPHOCYTES % 15.7 % (20.0-50.0); MEAN CORPUSCULAR HEMOGLOBIN 32.3 pg (28.0-32.0); MEAN PLATELET VOLUME 7.2 fl (7.4-10.4); MONOCYTES % 6.1 % (2.0-8.0); NEUTROPHILS % 76.6 % (40.0-76.0); PLATELET 209 x1000/uL (130-400); RED BLOOD CELL COUNT 2.82 mill/uL (4.2-5.4); RED CELL DISTRIBUTION WIDTH 14.1 % (11.6-14.6)
[2022-03-09 06:42] LABS: CHLORIDE 105 mEq/L (98-107)
[2022-03-09] MEDS: BLOOD SUGAR DIAGNOSTIC STRIP TEST SCH ×4 (07:03→20:31)
[2022-03-09] MEDS: CEFAZOLIN 2,000 MG in DEXT 5% WATER 100 ML IV SCH ×2 (07:03→14:25)
[2022-03-09] MEDS: INSULIN LISPRO 100 UNITS/ML SUBCUT SCH ×4 (08:00→20:37)
[2022-03-09] MEDS: HYDROCODONE/ACETAMINOPHEN 5/325MG TABLET PO PRN (09:02)
[2022-03-09] MEDS: CARVEDILOL 6.25 MG TABLET PO SCH ×2 (09:02→20:07)
[2022-03-09] MEDS: LOSARTAN POTASSIUM 25 MG TABLET PO SCH (09:02)
[2022-03-09] MEDS: ASCORBIC ACID 250 MG TABLET PO SCH (09:03)
[2022-03-09] MEDS: ZINC SULFATE 220 MG ( 50 ) CAPSULE PO SCH (09:03)
[2022-03-09] MEDS: INSULIN GLARGINE 100 UNITS/ML SUBCUT SCH (09:03)
[2022-03-09] MEDS ORDERED: NALOXONE HCL 0.4MG/ML VIAL IV PRN (15:30)
[2022-03-10] VITALS (12 sets, daily range): BP systolic 108–145; BP diastolic 47–97
[2022-03-10] MEDS: SODIUM CHLORIDE 0.45% 1,000 ML IV SCH (00:43)
[2022-03-10 05:30] LABS: CHLORIDE 105 mEq/L (98-107)
[2022-03-10 06:15] LABS: BASOPHILS % 0.3 % (0.0-2.0); EOSINOPHILS % 1.3 % (0.0-5.0); HEMATOCRIT. 32.4 % (36.0-48.0); HEMOGLOBIN. 10.9 g/dL (12.0-16.0); LYMPHOCYTES % 15.5 % (20.0-50.0); MEAN CORPUSCULAR VOLUME 95.2 fL (81.0-99.0); MEAN PLATELET VOLUME 7.3 fl (7.4-10.4); NEUTROPHILS % 76.9 % (40.0-76.0); PLATELET 194 x1000/uL (130-400); RED CELL DISTRIBUTION WIDTH 14.3 % (11.6-14.6)
[2022-03-10] MEDS: BLOOD SUGAR DIAGNOSTIC STRIP TEST SCH ×4 (07:30→21:20)
[2022-03-10] MEDS: INSULIN LISPRO 100 UNITS/ML SUBCUT SCH ×5 (08:00→21:00)
[2022-03-10] MEDS: ZINC SULFATE 220 MG ( 50 ) CAPSULE PO SCH (08:59)
[2022-03-10] MEDS: HYDROCODONE/ACETAMINOPHEN 5/325MG TABLET PO PRN (09:00)
[2022-03-10] MEDS: LOSARTAN POTASSIUM 25 MG TABLET PO SCH (09:00)
[2022-03-10] MEDS: CARVEDILOL 6.25 MG TABLET PO SCH ×2 (09:00→21:26)
[2022-03-10] MEDS: ASCORBIC ACID 250 MG TABLET PO SCH (09:00)
[2022-03-10] MEDS: INSULIN GLARGINE 100 UNITS/ML SUBCUT SCH (09:01)
[2022-03-11] VITALS (12 sets, daily range): BP systolic 126–151; BP diastolic 61–79
[2022-03-11] MEDS: BLOOD SUGAR DIAGNOSTIC STRIP TEST SCH ×4 (07:30→20:53)
[2022-03-11] MEDS: INSULIN LISPRO 100 UNITS/ML SUBCUT SCH ×4 (08:00→21:21)
[2022-03-11] MEDS: ZINC SULFATE 220 MG ( 50 ) CAPSULE PO SCH (08:02)
[2022-03-11] MEDS: LOSARTAN POTASSIUM 25 MG TABLET PO SCH (08:02)
[2022-03-11] MEDS: CARVEDILOL 6.25 MG TABLET PO SCH ×2 (08:02→20:53)
[2022-03-11] MEDS: ASCORBIC ACID 250 MG TABLET PO SCH (08:02)
[2022-03-11] MEDS ORDERED: INSULIN GLARGINE 100 UNITS/ML SUBCUT SCH (10:00)
[2022-03-11] MEDS: ACETAMINOPHEN 325MG TABLET PO PRN (12:58)
[2022-03-12] VITALS (9 sets, daily range): BP systolic 116–155; BP diastolic 55–78
[2022-03-12] MEDS: BLOOD SUGAR DIAGNOSTIC STRIP TEST SCH ×4 (05:49→21:06)
[2022-03-12] MEDS: INSULIN LISPRO 100 UNITS/ML SUBCUT SCH ×4 (07:25→21:19)
[2022-03-12] MEDS: CARVEDILOL 6.25 MG TABLET PO SCH ×2 (09:14→21:06)
[2022-03-12] MEDS: LOSARTAN POTASSIUM 25 MG TABLET PO SCH (09:14)
[2022-03-12] MEDS: ZINC SULFATE 220 MG ( 50 ) CAPSULE PO SCH (09:14)
[2022-03-12] MEDS: ACETAMINOPHEN 325MG TABLET PO PRN (09:14)
[2022-03-12] MEDS: ASCORBIC ACID 250 MG TABLET PO SCH (09:15)
[2022-03-12] MEDS: INSULIN GLARGINE 100 UNITS/ML SUBCUT SCH (09:17)
[2022-03-12] MEDS: HYDROCODONE/ACETAMINOPHEN 5/325MG TABLET PO PRN (10:45)
[2022-03-13] VITALS: BP 138/43
[2022-03-13] MEDS: BLOOD SUGAR DIAGNOSTIC STRIP TEST SCH ×4 (07:30→20:10)
[2022-03-13 08:00] VITALS: BP 144/74
[2022-03-13] MEDS: INSULIN LISPRO 100 UNITS/ML SUBCUT SCH ×4 (08:00→20:20)
[2022-03-13] MEDS: ZINC SULFATE 220 MG ( 50 ) CAPSULE PO SCH (09:00)
[2022-03-13] MEDS: ASCORBIC ACID 250 MG TABLET PO SCH (09:00)
[2022-03-13] MEDS: CARVEDILOL 6.25 MG TABLET PO SCH ×2 (09:00→20:10)
[2022-03-13] MEDS: LOSARTAN POTASSIUM 25 MG TABLET PO SCH (09:00)
[2022-03-13] MEDS: INSULIN GLARGINE 100 UNITS/ML SUBCUT SCH (10:00)
[2022-03-13 11:34] VITALS: BP 140/71
[2022-03-13 12:10] LABS: BASOPHILS % 0.4 % (0.0-2.0); EOSINOPHILS % 1.2 % (0.0-5.0); HEMATOCRIT. 25.4 % (36.0-48.0); HEMOGLOBIN. 8.7 g/dL (12.0-16.0); LYMPHOCYTES % 17.1 % (20.0-50.0); MEAN CORPUSCULAR HEMOGLOBIN 32.4 pg (28.0-32.0); MEAN CORPUSCULAR VOLUME 94.3 fL (81.0-99.0); MEAN PLATELET VOLUME 7.8 fl (7.4-10.4); MONOCYTES % 6.3 % (2.0-8.0); PLATELET 214 x1000/uL (130-400); RED CELL DISTRIBUTION WIDTH 14.5 % (11.6-14.6)
[2022-03-13 12:23] LABS: CHLORIDE 105 mEq/L (98-107)
[2022-03-13 15:54] VITALS: BP 136/70
[2022-03-13 20:00] VITALS: BP 138/71
[2022-03-13 22:00] VITALS: BP 125/56
[2022-03-14] VITALS (9 sets, daily range): BP systolic 107–144; BP diastolic 36–79
[2022-03-14] MEDS: BLOOD SUGAR DIAGNOSTIC STRIP TEST SCH ×4 (07:03→21:49)
[2022-03-14] MEDS: LOSARTAN POTASSIUM 25 MG TABLET PO SCH (08:42)
[2022-03-14] MEDS: INSULIN GLARGINE 100 UNITS/ML SUBCUT SCH (08:42)
[2022-03-14] MEDS: ZINC SULFATE 220 MG ( 50 ) CAPSULE PO SCH (08:42)
[2022-03-14] MEDS: ASCORBIC ACID 250 MG TABLET PO SCH (08:42)
[2022-03-14] MEDS: CARVEDILOL 6.25 MG TABLET PO SCH ×2 (08:42→21:49)
[2022-03-14] MEDS: INSULIN LISPRO 100 UNITS/ML SUBCUT SCH ×4 (08:50→21:50)
[2022-03-14 10:19] LABS: BASOPHILS % 0.9 % (0.0-2.0); EOSINOPHILS % 1.4 % (0.0-5.0); HEMOGLOBIN. 9.1 g/dL (12.0-16.0); LYMPHOCYTES % 17.8 % (20.0-50.0); MEAN CORPUSCULAR HEMOGLOBIN 32.6 pg (28.0-32.0); MEAN CORPUSCULAR VOLUME 96.3 fL (81.0-99.0); MEAN PLATELET VOLUME 7.2 fl (7.4-10.4); MONOCYTES % 5.1 % (2.0-8.0); NEUTROPHILS % 74.8 % (40.0-76.0); PLATELET 215 x1000/uL (130-400); RED CELL DISTRIBUTION WIDTH 14.9 % (11.6-14.6)
[2022-03-14 10:29] LABS: CHLORIDE 102 mEq/L (98-107)
[2022-03-15] VITALS (8 sets, daily range): BP systolic 122–149; BP diastolic 65–87
[2022-03-15 05:58] LABS: BASOPHILS % 0.5 % (0.0-2.0); EOSINOPHILS % 1.4 % (0.0-5.0); HEMATOCRIT. 27.4 % (36.0-48.0); HEMOGLOBIN. 9.3 g/dL (12.0-16.0); LYMPHOCYTES % 21.9 % (20.0-50.0); MEAN CORPUSCULAR HEMOGLOBIN 32.3 pg (28.0-32.0); MEAN CORPUSCULAR VOLUME 95.3 fL (81.0-99.0); MEAN PLATELET VOLUME 7.5 fl (7.4-10.4); MONOCYTES % 6.8 % (2.0-8.0); NEUTROPHILS % 69.4 % (40.0-76.0); PLATELET 211 x1000/uL (130-400); RED BLOOD CELL COUNT 2.87 mill/uL (4.2-5.4); RED CELL DISTRIBUTION WIDTH 14.9 % (11.6-14.6)
[2022-03-15 06:23] LABS: CHLORIDE 105 mEq/L (98-107)
[2022-03-15] MEDS: BLOOD SUGAR DIAGNOSTIC STRIP TEST SCH ×4 (06:35→21:00)
[2022-03-15] MEDS: INSULIN LISPRO 100 UNITS/ML SUBCUT SCH ×4 (07:50→21:00)
[2022-03-15] MEDS: ASCORBIC ACID 250 MG TABLET PO SCH (09:00)
[2022-03-15] MEDS: INSULIN GLARGINE 100 UNITS/ML SUBCUT SCH (10:00)
[2022-03-15] MEDS: LOSARTAN POTASSIUM 25 MG TABLET PO SCH (10:01)
[2022-03-15] MEDS: CARVEDILOL 6.25 MG TABLET PO SCH ×2 (10:02→22:24)
[2022-03-15] MEDS: ZINC SULFATE 220 MG ( 50 ) CAPSULE PO SCH (10:02)
[2022-03-15] MEDS: ACETAMINOPHEN 325MG TABLET PO PRN (10:03)
[2022-03-16] VITALS (9 sets, daily range): BP systolic 113–161; BP diastolic 57–76
[2022-03-16 06:00] LABS: CHLORIDE 102 mEq/L (98-107)
[2022-03-16 06:09] LABS: BASOPHILS % 0.6 % (0.0-2.0); EOSINOPHILS % 1.1 % (0.0-5.0); LYMPHOCYTES % 18.5 % (20.0-50.0); MEAN CORPUSCULAR HEMOGLOBIN 32.3 pg (28.0-32.0); MEAN CORPUSCULAR VOLUME 96.7 fL (81.0-99.0); MEAN PLATELET VOLUME 7.2 fl (7.4-10.4); MONOCYTES % 6.9 % (2.0-8.0); NEUTROPHILS % 72.9 % (40.0-76.0); PLATELET 244 x1000/uL (130-400); RED BLOOD CELL COUNT 3.44 mill/uL (4.2-5.4); RED CELL DISTRIBUTION WIDTH 15.3 % (11.6-14.6)
[2022-03-16 07:08] LABS: HEMATOCRIT. 33.3 % (36.0-48.0); HEMOGLOBIN. 11.1 g/dL (12.0-16.0)
[2022-03-16] MEDS: BLOOD SUGAR DIAGNOSTIC STRIP TEST SCH ×4 (07:30→22:00)
[2022-03-16] MEDS: INSULIN LISPRO 100 UNITS/ML SUBCUT SCH ×4 (07:40→22:00)
[2022-03-16] MEDS: ASCORBIC ACID 250 MG TABLET PO SCH (08:09)
[2022-03-16] MEDS: LOSARTAN POTASSIUM 25 MG TABLET PO SCH (08:09)
[2022-03-16] MEDS: ZINC SULFATE 220 MG ( 50 ) CAPSULE PO SCH (08:09)
[2022-03-16] MEDS: INSULIN GLARGINE 100 UNITS/ML SUBCUT SCH (08:10)
[2022-03-16] MEDS: CARVEDILOL 6.25 MG TABLET PO SCH ×2 (08:10→22:32)
[2022-03-17] VITALS (10 sets, daily range): BP systolic 113–140; BP diastolic 54–78
[2022-03-17 07:05] LABS: BASOPHILS % 0.6 % (0.0-2.0); EOSINOPHILS % 1.4 % (0.0-5.0); HEMATOCRIT. 26.8 % (36.0-48.0); LYMPHOCYTES % 23.3 % (20.0-50.0); MEAN CORPUSCULAR HEMOGLOBIN 32.3 pg (28.0-32.0); MEAN CORPUSCULAR VOLUME 95.9 fL (81.0-99.0); MONOCYTES % 6.3 % (2.0-8.0); NEUTROPHILS % 68.4 % (40.0-76.0); PLATELET 237 x1000/uL (130-400); RED BLOOD CELL COUNT 2.79 mill/uL (4.2-5.4); RED CELL DISTRIBUTION WIDTH 15.6 % (11.6-14.6)
[2022-03-17 07:16] LABS: CHLORIDE 106 mEq/L (98-107)
[2022-03-17] MEDS: INSULIN LISPRO 100 UNITS/ML SUBCUT SCH ×4 (08:00→22:16)
[2022-03-17] MEDS: BLOOD SUGAR DIAGNOSTIC STRIP TEST SCH ×4 (08:12→22:15)
[2022-03-17] MEDS: CARVEDILOL 6.25 MG TABLET PO SCH ×2 (08:58→22:22)
[2022-03-17] MEDS: LOSARTAN POTASSIUM 25 MG TABLET PO SCH (08:58)
[2022-03-17] MEDS: ZINC SULFATE 220 MG ( 50 ) CAPSULE PO SCH (08:58)
[2022-03-17] MEDS: ASCORBIC ACID 250 MG TABLET PO SCH (08:59)
[2022-03-17] MEDS: INSULIN GLARGINE 100 UNITS/ML SUBCUT SCH (09:11)
[2022-03-17] MEDS: ACETAMINOPHEN 325MG TABLET PO PRN (11:22)
[2022-03-18] VITALS (8 sets, daily range): BP systolic 112–125; BP diastolic 54–90
[2022-03-18] MEDS: BLOOD SUGAR DIAGNOSTIC STRIP TEST SCH ×2 (07:37→12:36)
[2022-03-18] MEDS: INSULIN LISPRO 100 UNITS/ML SUBCUT SCH ×2 (07:38→12:44)
[2022-03-18] MEDS: CARVEDILOL 6.25 MG TABLET PO SCH (08:59)
[2022-03-18] MEDS: ZINC SULFATE 220 MG ( 50 ) CAPSULE PO SCH (08:59)
[2022-03-18] MEDS: LOSARTAN POTASSIUM 25 MG TABLET PO SCH (08:59)
[2022-03-18] MEDS: ASCORBIC ACID 250 MG TABLET PO SCH (09:02)
[2022-03-18] MEDS: INSULIN GLARGINE 100 UNITS/ML SUBCUT SCH (10:14)
[2022-03-18] MEDS: ACETAMINOPHEN 325MG TABLET PO PRN (10:15)
== END 2022-03-18 16:00 | disposition home health service (06) | DRG 853 ==
LOC: ER 09:33 → EDBEDREQ 09:59 → EDBEDREQSVC 11:37 → EDBEDREQTM 11:37 → ENRESERV 13:45 → SUPCPDRO 16:11 → 8WST 16:41 → 5EST 03-04 19:25
PROVIDERS: ADMIT Internal Medicine Nephrology; ATTEND Internal Medicine Nephrology
PROC: 04JY0ZZ Inspection of Lower Artery, Open Approach (ICD-10-PCS; principal; 2022-03-04)
PROC: 0Y6D0Z3 Detachment at Left Upper Leg, Low, Open Approach (ICD-10-PCS; 2022-03-07)
PROC: 0Y6C0Z3 Detachment at Right Upper Leg, Low, Open Approach (ICD-10-PCS; 2022-03-07)
DX: A41.9 Sepsis, unspecified organism (principal); G93.41 Metabolic encephalopathy; E11.52 Type 2 diabetes mellitus with diabetic peripheral angiopathy with gangrene; N39.0 Urinary tract infection, site not specified; L97.413 Non-pressure chronic ulcer of right heel and midfoot with necrosis of muscle; I42.9 Cardiomyopathy, unspecified; I96 Gangrene, not elsewhere classified; M86.8X7 Other osteomyelitis, ankle and foot; I48.20 Chronic atrial fibrillation, unspecified; L03.115 Cellulitis of right lower limb; I13.0 Hypertensive heart and chronic kidney disease with heart failure and stage 1 through stage 4 chronic kidney disease, or unspecified chronic kidney disease; D64.9 Anemia, unspecified; E11.22 Type 2 diabetes mellitus with diabetic chronic kidney disease; F02.80 Dementia in other diseases classified elsewhere, unspecified severity, without behavioral disturbance, psychotic disturbance, mood disturbance, and anxiety; G30.9 Alzheimer's disease, unspecified; N18.2 Chronic kidney disease, stage 2 (mild); I08.3 Combined rheumatic disorders of mitral, aortic and tricuspid valves; L89.159 Pressure ulcer of sacral region, unspecified stage; E11.69 Type 2 diabetes mellitus with other specified complication; E78.5 Hyperlipidemia, unspecified; I25.10 Atherosclerotic heart disease of native coronary artery without angina pectoris; Z20.822 Contact with and (suspected) exposure to COVID-19; L89.629 Pressure ulcer of left heel, unspecified stage; Z74.01 Bed confinement status; Z79.4 Long term (current) use of insulin; Z95.0 Presence of cardiac pacemaker; Z79.899 Other long term (current) drug therapy
CPT/HCPCS: 36415; 36600; 71045; 75635; 80048; 80053; 81003; 82270; 82375; 82805; 82962; 83036; 83605; 84145; 85025; 86850; 86900; 86920; 87426; 88307; 88311; 93005; 93306; 93970; 97162; 97166; 97530; 97535; 99285; J0690; J0696; J1100; J1160; J1644; J1650; J1815; J2250; J2270; J2370; J2405; J2543; J2704; J3010; J3370; J3490; J7030; J7060; L3908; Q9967

== ENCOUNTER 2022-04-11 11:49 | Inpatient (IN) | payer MEDICARE, MEDICAID ==
[~2022-04-11] VITALS: Ht 129.5 cm; Wt 36.7 kg
[2022-04-11 12:41] LABS: EOSINOPHILS % 2.3 % (0.0-5.0); HEMATOCRIT. 36.6 % (36.0-48.0); HEMOGLOBIN. 12.2 g/dL (12.0-16.0); LYMPHOCYTES % 25.2 % (20.0-50.0); MEAN CORPUSCULAR HEMOGLOBIN 32.6 pg (28.0-32.0); MEAN CORPUSCULAR VOLUME 97.7 fL (81.0-99.0); MEAN PLATELET VOLUME 7.5 fl (7.4-10.4); NEUTROPHILS % 65.5 % (40.0-76.0); PLATELET 236 x1000/uL (130-400); RED BLOOD CELL COUNT 3.75 mill/uL (4.2-5.4); RED CELL DISTRIBUTION WIDTH 15.9 % (11.6-14.6)
[2022-04-11 12:49] LABS: CHLORIDE 103 mEq/L (98-107)
[2022-04-11] MEDS ORDERED: NA PHOS,M-B/NA PHOS,DI-BA ENEMA 118ML PR NR ×2 (14:15→21:00)
[2022-04-11] MEDS ORDERED: ASPIRIN 81MG TABLET PO NR (14:15)
[2022-04-11] MEDS ORDERED: DOCUSATE SODIUM 250MG CAPSULE PO PRN (14:30)
[2022-04-11] MEDS ORDERED: ACETAMINOPHEN 325MG TABLET PO PRN (14:30)
[2022-04-11] MEDS ORDERED: LACTULOSE 20G/30ML UDC PO SCH (14:30)
[2022-04-11] MEDS ORDERED: CLONIDINE 0.1MG TABLET PO PRN (14:30)
[2022-04-11] MEDS ORDERED: ONDANSETRON HCL 4MG/2ML INJ IV PRN (14:30)
[2022-04-11] MEDS ORDERED: LACTULOSE 20G/30ML UDC PO NR (14:45)
[2022-04-11 19:30] VITALS: BP_SYST 133; BP_SYST 151; BP_DIAS 69; BP_DIAS 90
[2022-04-11] MEDS ORDERED: DEXTROSE 50% WATER 50ML SYRINGE IV PRN (19:45)
[2022-04-11 20:00] VITALS: BP 151/91
[2022-04-11] MEDS: BLOOD SUGAR DIAGNOSTIC STRIP TEST SCH (21:28)
[2022-04-11] MEDS: INSULIN LISPRO 100 UNITS/ML SUBCUT SCH (21:38)
[2022-04-11] MEDS: INSULIN GLARGINE 100 UNITS/ML SUBCUT SCH (21:39)
[2022-04-12] VITALS: BP 103/80
[2022-04-12 04:00] VITALS: BP 121/68
[2022-04-12] MEDS: BLOOD SUGAR DIAGNOSTIC STRIP TEST SCH ×4 (06:30→21:29)
[2022-04-12] MEDS: INSULIN LISPRO 100 UNITS/ML SUBCUT SCH ×4 (06:30→21:00)
[2022-04-12 08:00] VITALS: BP 105/65
[2022-04-12] MEDS: SORBITOL 70% SOLN 30ML PO SCH (08:47)
[2022-04-12] MEDS: DOCUSATE SODIUM 250MG CAPSULE PO SCH (08:47)
[2022-04-12] MEDS: FUROSEMIDE 20MG TABLET PO SCH (08:48)
[2022-04-12 09:15] LABS: BASOPHILS % 0.6 % (0.0-2.0); EOSINOPHILS % 3.5 % (0.0-5.0); HEMATOCRIT. 34.1 % (36.0-48.0); HEMOGLOBIN. 11.2 g/dL (12.0-16.0); LYMPHOCYTES % 31.9 % (20.0-50.0); MEAN CORPUSCULAR HEMOGLOBIN 32.3 pg (28.0-32.0); MEAN CORPUSCULAR VOLUME 98.5 fL (81.0-99.0); MEAN PLATELET VOLUME 7.7 fl (7.4-10.4); MONOCYTES % 9.8 % (2.0-8.0); NEUTROPHILS % 54.2 % (40.0-76.0); PLATELET 225 x1000/uL (130-400); RED BLOOD CELL COUNT 3.46 mill/uL (4.2-5.4); RED CELL DISTRIBUTION WIDTH 16.1 % (11.6-14.6)
[2022-04-12 09:23] LABS: CHLORIDE 108 mEq/L (98-107)
[2022-04-12 12:00] VITALS: BP 104/52
[2022-04-12 16:00] VITALS: BP 112/61
[2022-04-12 20:00] VITALS: BP 110/63
[2022-04-12] MEDS: METOPROLOL TARTRATE 25MG TABLET PO SCH (21:00)
[2022-04-12] MEDS: INSULIN GLARGINE 100 UNITS/ML SUBCUT SCH ×2 (21:29→22:00)
[2022-04-13] VITALS: BP 117/63
[2022-04-13 04:00] VITALS: BP 111/73
[2022-04-13] MEDS: BLOOD SUGAR DIAGNOSTIC STRIP TEST SCH ×3 (06:39→16:46)
[2022-04-13] MEDS: INSULIN LISPRO 100 UNITS/ML SUBCUT SCH ×3 (06:39→16:50)
[2022-04-13 08:00] VITALS: BP 147/82
[2022-04-13] MEDS: FUROSEMIDE 20MG TABLET PO SCH (09:14)
[2022-04-13] MEDS: SORBITOL 70% SOLN 30ML PO SCH (09:14)
[2022-04-13] MEDS: METOPROLOL TARTRATE 25MG TABLET PO SCH (09:14)
[2022-04-13] MEDS: DOCUSATE SODIUM 250MG CAPSULE PO SCH (09:14)
[2022-04-13 11:12] VITALS: BP 145/82
[2022-04-13 12:03] VITALS: BP 126/76
[2022-04-13 15:44] VITALS: BP 121/66
== END 2022-04-13 18:11 | disposition home or self-care (01) | DRG 280 ==
LOC: ER 12:32 → 6WST 14:22 → ENRESERV 15:51
PROVIDERS: ADMIT Internal Medicine Nephrology; ATTEND Internal Medicine Nephrology
DX: I21.4 Non-ST elevation (NSTEMI) myocardial infarction (principal); I50.23 Acute on chronic systolic (congestive) heart failure; I11.0 Hypertensive heart disease with heart failure; K56.41 Fecal impaction; I48.91 Unspecified atrial fibrillation; D64.9 Anemia, unspecified; E11.51 Type 2 diabetes mellitus with diabetic peripheral angiopathy without gangrene; F03.90 Unspecified dementia, unspecified severity, without behavioral disturbance, psychotic disturbance, mood disturbance, and anxiety; D72.819 Decreased white blood cell count, unspecified; I25.10 Atherosclerotic heart disease of native coronary artery without angina pectoris; Z89.611 Acquired absence of right leg above knee; Z89.612 Acquired absence of left leg above knee; Z95.0 Presence of cardiac pacemaker; Z90.49 Acquired absence of other specified parts of digestive tract
CPT/HCPCS: 36415; 71045; 74176; 80053; 82962; 83036; 83880; 84484; 85025; 93005; 99285; J1815; J2405